=== PATIENT | female | born 2000 | race Hispanic/Latino ===

== ENCOUNTER 2025-07-05 07:34 | Inpatient (IN) | payer OTHER, SELFPAY ==
--- NOTE | 2025-07-05 09:42 | P.HPOB_ITS ---
OB HPI Date/Time Date of admission: 07/05/25 Date Patient Seen: 07/05/25 Time Patient Seen: 09:42 History of Present Condition Chief complaint: labor Estimated Gestational Age (weeks): 39w6d : 2 Para: 0 care: good care Dating criteria OB: based on 1st trimester US only Ultrasounds: normal mid trimester US Medical complications OB: none (Chronic Hypertension) Narrative: Patient is a 24yo @ 39w6d presents to L&D by private vehicle from [facility] ([facility] is on diversion), Patient had complete care at [facility] in [place]. records received and reviewed. unable to confirm GBS status-- patient certain she is GBS negative O positive, labs wnl Patient had started an IOL on 07/03 with her primary OB at [facility] due to rising blood pressures. She received 3 doses of cytotec on 07/03 overnight but in the morning on 07/04 decided that since her blood pressures were normal in the hospital and PIH lab wnl she discussed with the OB stopping the induction and waiting for her partner to get back in town to continue the induction. This morning at 0530 she had a big gush of clear fluid c/w PROM. She reports since then having some increasing contractions and cramping but is resting comfortably. Patient sent to [facility] due to [facility] status on diversion. Patient here with her mother for support and is landing in [place] later this morning. Indications Other reason(s) for admission: Premature rupture of membranes at term Preadmission Labs -: Chlamydia screen: negative and Gonorrhea screen: negative Genetic Screens: Cell-free DNA: Normal External Labs Blood type OB HPI: O (+) positive -: Antibody screen: negative, HBsAG: negative, HIV: negative, RPR/VDLR: negative, Chlamydia screen: negative, Gonorrhea screen: negative and GBS status: negative -: Rubella: immune and Varicella: not immune HCAB: negative Genetic Screens: Cell-free DNA: Normal Prior (ies) Hx # Term Pregnancies: 0 Number of Living Children: 0 Spontaneous abortions: 1 Evaluation Evaluation Baseline heart rate: 130 Variability: Moderate (6-25) monitor accelerations: Present Monitor Decelerations: Absent Contraction Frequency (minutes): 6 Uterine Contraction Intensity: Mild Category of Tracing: Reactive Status: Category l Dilation (cm): 0.5 Effacement (%): 30 Dilation: Closed Effacement: 0-30% station: -3 Position of cervix: posterior Consistency: medium Webber score: 1 Meds Home Medications and Allergies Home Medications ?Medication ?Instructions ?Recorded ?Confirmed ?Type vits no.130-ferrous fum 1 tab PO DAILY 07/05/25 History 27 mg iron-folic acid 800 mcg tablet ( Vitamin) Allergies Allergy/AdvReac Type Severity Reaction Status Date / Time ibuprofen Allergy Severe Anaphylaxis Verified 07/05/25 08:27 amoxicillin Allergy Hives Verified 07/05/25 08:27 Penicillins Allergy Hives Verified 07/05/25 08:27 Review of Systems Review of Systems ROS: Yes All systems reviewed with the patient and are negative except as otherwise documented Assessment and Plan Assessment and Plan Assessment and Plan narrative: Patient is a 24yo @ 39w6d presents with PROM at term. 1. PROM at term- admit to L&D - CEFM, IVF - cervix unfavorable per RN exam - BSUS- confirmed vertex presentation - EFW by clau'winnie- 6lbs - discussed pitocin vs misoprostol for induction-- we will proceed with Misoprostol considering unfavorable cervix in a nullip. - patient agreeable to this - start misoprostol 50mcg bucally q 4 hours x 4-6 doses - discussed expectations for induction and all questions answered - GBS negative (per pt) - FHTs category 1 2. CHTN - no previous diagnosis, based on elevated BPs x 2 at 10 and 14wks - no meds - recent PIH labs wnl, P/c ration- 0.1 on 07/03 - no evidence of PreE at [facility] but will continue to monitor dispo- anticipate Time-Based Coding :: [TOTAL MINUTES] spent with patient and on the chart (including review of chart, obtaining history, exam, reviewing outside data, placing orders, documenting exam and treatment plan, and counseling patient) on [DATE].
[2025-07-05 09:47] LABS: Add Manual Diff / Slide Review NO; Hematocrit 41.7 % (36-46); Hemoglobin 14.6 g/dL (12.0-16.0); Lymphocytes Absolute Auto 1600 /uL (1100-4500); Mean Corpuscular HGB Conc 35.0 % (30-36); Mean Corpuscular Hemoglobin 32.7 PG (26-34); Mean Corpuscular Volume 93.6 fL (80-100); Platelet Count 287 X10^3/uL (150-400)
--- NOTE | 2025-07-05 15:34 | PM.OBPNLAB ---
Date/Time Date Patient Seen: 07/05/25 Time Patient Seen: 15:34 Pain Control Pain control: tolerating well Comments: Constantin getting uncomfortable with contractions, not yet requesting epidural but planning on it later in labor. partner on his way here- 60min away Pelvic Exam Dilation (cm): 4 Effacement (%): 80 station: -1 Amniotic membrane status: Ruptured Contractions Contractions on admission: irregular Monitor mode: External Contraction frequency (min): 3 Contraction pattern: Regular Contraction phase: Resting Contraction intensity: Moderate Status status: Category l Heart Rate Baseline: 125 Monitor Accelerations: Present Monitor Decelerations: Absent Monitor Variability: Moderate Assessment and Plan Assessment: active labor Plan: continuous present management Comments: patient now s/p 2 doses of misoprostol since this am- last dose 1440 current exam- /-1, vertex continue current management, will start pitocin if indicated 4 hours after last dose of miso FHTs category 1, reassuring anesthesia per request anticipate
[2025-07-05] MEDS: LACTATED RINGERS 1,000 ML 100 ML IV ×2 (18:30→23:07)
[2025-07-05] MEDS: OXYTOCIN PREMIX 30 UNIT/500 ML PLAST..BAG IV (19:32)
--- NOTE | 2025-07-05 20:14 | PM.AN.REGBLK ---
Regional Block Pre-procedure Procedure: Continuous Lumbar Epidural for L&D (with CSE) PMH/ROS narrative: Healthy 24yr old with a few high BP readings early in . No signs of PreE PSH/Anesthesia history narrative: Laparoscopy 2023 No anesthesia complications ASA Class: II Labs: Hct 41.7 % (36-46) 07/05/25 09:10 Plt Count 287 X10^3/uL (150-400) 07/05/25 09:10 Medications: Current Medications Generic Name Dose Route Start Last Admin Trade Name Freq PRN Reason Stop Dose Admin Carboprost Tromethamine 250 mcg 07/05/25 09:37 Carboprost 250 Mcg/Ml Ampul IM Q90M PRN Bleeding Oxytocin/Lactated Ringer's 30 unit in 500 mls @ 200 mls/hr 07/05/25 09:37 Oxytocin Premix IV CONT PRN Bleeding Protocol Tranexamic Acid 1,000 mg/ 100 mls @ 600 mls/hr 07/05/25 09:37 Sodium Chloride IV NOW PRN Bleeding Oxytocin/Lactated Ringer's 30 unit in 500 mls @ 2 mls/hr 07/05/25 19:28 07/05/25 19:32 Oxytocin Premix IV 2 milliunit/min TITRATE RUMA 2 mls/hr Protocol Administration 2 MILLIUNIT/MIN Lidocaine HCl 20 ml 07/05/25 09:37 Lidocaine 1% 20 Ml INJ INTRA-OP PRN Post Delivery Methylergonovine Maleate 0.2 mg 07/05/25 09:37 Methylergonovine 0.2 Mg Tablet PO Q6HR PRN Heavy Bleeding Methylergonovine Maleate 0.2 mg 07/05/25 09:37 Methylergonovine 0.2 Mg/Ml Vial IM NOW PRN Bleeding Mineral Oil 30 ml 07/05/25 09:37 Mineral Oil 30 Ml Udc TOP PRN PRN Version Misoprostol 800 mcg 07/05/25 09:37 Misoprostol 200 Mcg Tablet IL NOW PRN Bleeding Misoprostol 400 mcg 07/05/25 09:37 Misoprostol 200 Mcg Tablet SL NOW PRN Bleeding Misoprostol 50 mcg 07/05/25 09:37 07/05/25 14:41 Misoprostol 25 Mcg Tablet PO 50 mcg Q4H PRN Administration cervical ripening Naloxone HCl 0.2 mg 07/05/25 09:37 Naloxone 0.4 Mg/Ml Vial IV Q2MIN PRN Opiate Reversal Oxytocin 10 unit 07/05/25 09:37 Oxytocin 10 Unit/Ml Vial IM NOW PRN Bleeding Allergies: Allergies Allergy/AdvReac Type Severity Reaction Status Date / Time ibuprofen Allergy Severe Anaphylaxis Verified 07/05/25 08:27 amoxicillin Allergy Hives Verified 07/05/25 08:27 Penicillins Allergy Hives Verified 07/05/25 08:27 Procedure Insertion date: 07/05/25 Insertion time: 18:52 Prep/Local: 1% lidocaine (chloroprep) Interspace: L3-4 Patient position: sitting Needle: 18 gauge Sandra Loss of resistance with: saline LALO at (cm): 8 Catheter placed at SKIN (cm): 12 Catheter in SPACE (cm): 4 Insertion: No CSF, No Blood, Yes Paresthesia with insertion, No Paresthesia with injection and No Test dose reaction Initial Medications TEST DOSE time: 19:07 (CSE @ 1850) TEST DOSE: 1.5% lidocaine with epinephrine 1:200k (mL): 3 BOLUS DOSE time: 20:00 BOLUS DOSE (mL): 7 BOLUS DOSE med: 0.25% bupivacaine Infusion INFUSION: 0.125% bupivacaine and with fentanyl 2 mcg/mL Initial rate (mL/hr): 8 Post-procedure Anesthesia date START: 07/05/25 Anesthesia time START: 18:36
[2025-07-06] MEDS: CALCIUM CARBONATE 500 MG TAB 1000 MG PO (00:27)
[2025-07-06] MEDS: TRANEXAMIC ACID 1,000 MG in SODIUM CHLORIDE 0.9% 100 ML 600 MG IV (02:49)
--- NOTE | 2025-07-06 03:25 | PM.OBPRVD ---
Events: Labor Induction and Other (chronic hypertension) Labor & Delivery Delivery date: 07/06/25 Delivery Time: 02:38 Cervical ripening method: per misoprostal protocol Induction method: per pitocin protocol (max dose 14mu/min) Delivery monitor: external FHT and external uterine Route of delivery: L&D Laceration Description: Vaginal - 1st Degree and Labial (right) Delivery repair: other (4.0 monocryl) Quantitative Blood Loss: 530 Anesthesia Type: Epidural Narrative: CNM and SNM called to room for imminent while OB attending at in another room. Large crown upon arrival with strong maternal pushing efforts. Head was delivered in ALONZO position and after restitution the shoulders were easily delivered. Baby was placed on maternal abdomen for drying and skin to skin. Pitocin was started at 334ml/hr for active management of the third stage of labor. After the cord stopped pulsing SNM double clamped and FOB cut the cord. Cord blood hold sample was collected. With gentle cord traction and a single maternal push, an intact Shutzle placenta was delivered. Fundus immediately firm, but moderate bleeding continued. TXA was started as blood loss was at 400 mL. Vagina and perineum were inspected and a superficial right labial laceration and 1st degree right vaginal sidewall laceration repaired with 4.0 monocryl as no other 4.0 suture was available at that time. QBL 530mL. Mom and baby were skin to skin as I left the room. Denisha Chou RN, SNM and HUMAIRA Flores, ISABEL [place] Baby 1: gender: Male Presentation: vertex Position: Right Occiput Anterior Placenta delivery description: Spontaneous Cord Vessel Description: 3 Vessels score (1 min): 9 score (5 min): 9 Plan for aftercare: Routine care
[2025-07-06] MEDS: DERMOPLAST SPRAY 20% 60 ML 1 SPRAY TOP (04:42)
[2025-07-06] MEDS: ACETAMINOPHEN 325 MG TABLET 650 MG PO ×3 (05:51→18:22)
[2025-07-06] MEDS: LANOLIN OINT 7 GM 1 APPLIC TOP (12:21)
[2025-07-06 19:43] VITALS: BP 101/71; PULSE 93; RESP 16; TEMP 36.9; O2SAT 99
[2025-07-07] MEDS: ACETAMINOPHEN 325 MG TABLET 650 MG PO (02:32)
--- NOTE | 2025-07-07 08:53 | P.DS_ITS ---
Discharge Providers Provider Date of admission: 07/05/25 07:34 Discharge Date: 07/07/25 Primary care physician: Ksenia MCCORD Provider Consults: 07/05/25 09:37 Consult to Anesthesiology Urgent Comment: Consulting Provider: Anesthesiologist Reason for consultation: Epidural 07/06/25 03:55 Consult to Supervisor [facility] Routine Comment: Discharge provider: Kassie Charles DO Summary Hospital Course Date Patient Seen: 07/07/25 Time Patient Seen: 08:45 Diagnoses: Term , , chronic hypertension Hospital Course: Patient is a 24yo G2 now P1011 presented to L&D at 39w6d with PROM. Of note- patient had started induction of labor with misoprostol at [facility] on 07/03 due to worsening blood pressures and presumed diagnosis of Preeclampsia. BUt during admission her BP was normal and PIH labs normal so discharged home. She then presented the next day with PROM but since [facility] was on diversion was sent to [facility]. SHe then was restarted on misoprostol and progressed to complete dilation and on 07/06. SHe has had an uncomplicated course and has remained normotensive. no s/s of preeclampsia at this time but considering her uncertain history, recommend close follow up with primary OB for BP check. [place] [facility] [place] [facility] Per[place]um Data Delivery Method: Natural Vaginal Laceration Description: Perineal - 1st Degree Procedures: spontaneous vaginal delivery, epidural, induction of labor complications: none Discharge Diagnosis (1) Premature rupture of membranes: Status: Acute Status at Discharge Cognitive/behavioral status at discharge: oriented Functional status at discharge: independent ambulation Overall status at discharge: patient is progressing back to baseline Time Spent with Patient Time attestation: Total time spent providing and/or coordinating discharge services: Time spent: Less than 30 minutes Specific discharge activities: pelvic rest x 6 weeks Objective Labs 07/05/25 09:10 Exam Vital Signs (past 8 hours): Oxygen Delivery Method Room Air Narrative Exam Narrative: General- AAO x 3, NAD cardio- RRR lungs- unlabored respirations fundus- firm below the umbilicus - minimal lochia Discharge Plan Discharge Plan Patient Disposition: Home Discharge orders & Medications Prescriptions: Continued Vitamin 27 mg iron- 800 mcg tablet 1 tab PO DAILY Follow up/Referrals: Provider,Ksenia MCCORD [Primary Care Provider, Family Practice] Diet/Activity/Treatments Diet: Regular Skin/Wound/Dressing Care Report to your healthcare provider any signs of infection, such as:: chills, fever, increased pain, unusual drainage and unusual redness Discharge Data Primary Care Provider: Ksenia Bradley
[2025-07-07 10:02] VITALS: BP 125/85; PULSE 82; RESP 16; TEMP 36.9
== END 2025-07-07 12:53 | disposition home or self-care (01) | DRG 806 ==
PROVIDERS: Admitting Provider Obstetrics & Gynecology; Referring Provider Obstetrics & Gynecology; Visit Provider Obstetrics & Gynecology
DX: O42.02 Full-term premature rupture of membranes, onset of labor within 24 hours of rupture (principal); O10.02 Pre-existing essential hypertension complicating childbirth; Z37.0 Single live birth; Z3A.39 39 weeks gestation of pregnancy; O70.0 First degree perineal laceration during delivery
CPT/HCPCS: 36415; 59050; 59200; 85025; 86850; 86900; 86901; 99222; 99238; G0379; J2590; J7050; J7120